=== PATIENT | male | born 1950 | race African-American/Black ===

== ENCOUNTER 2016-08-23 00:11 | Emergency (ER) | payer OTHER ==
[2016-08-23 00:36] VITALS: BP 156/88; PULSE 103; TEMP 98.2; BMI 31.1
--- NOTE | 2016-08-23 00:52 | PDOC ---
History of Present Illness - History of Present Illness Initial Comments: 08/23/16 01:44 Patient is a 65 year old male with significant medical hx of HTN who is presenting to the ED with blood in his stool from this evening. The patient is accompanied by family member. The patient also endorses some diffuse abdominal pain but denies any nausea, vomiting, or diarrhea. Patient is a poor historian and doesn't offer any other complaints. Patient had a colonoscopy five years ago, which he was due for his age, and reports it was WNL. The patient was admitted to [facility] one year ago for syncope. He is unsure of the results from his admission. Surgical Hx: tonsillectomy, two hernia repairs <Radha Mcconnell - Last Filed: 08/23/16 02:09> <Shivani Leggett - Last Filed: 08/24/16 02:28> - General Chief Complaint: Pain, Acute Stated Complaint: STOMACH PAIN/POSSIBLE BLOOD IN STOOL Time Seen by Provider: 08/23/16 00:32 Past History - Psycho/Social/Smoking Cessation Hx Suicidal Ideation: No Smoking History: Never smoked Have you smoked in the past 12 months: No Information on smoking cessation initiated: No Hx Alcohol Use: No Drug/Substance Use Hx: No <Shivani Leggett - Last Filed: 08/24/16 02:28> Review of Systems - Review of Systems Comments:: 08/23/16 01:49 CONSTITUTIONAL: Absent: fever, chills, diaphoresis, generalized weakness, malaise, loss of appetite HEENT: Absent: rhinorrhea, nasal congestion, throat pain, throat swelling, difficulty swallowing, mouth swelling, ear pain, eye pain, visual changes CARDIOVASCULAR: Absent: chest pain, syncope, palpitations, irregular heart rate, lightheadedness , peripheral edema RESPIRATORY: Absent: cough, shortness of breath, dyspnea with exertion, orthopnea, wheezing, stridor, hemoptysis GASTROINTESTINAL: Present: abdominal pain, blood in stool Absent: abdominal distension, nausea, vomiting, diarrhea, constipation, melena, hematochezia GENITOURINARY: Absent: dysuria, frequency, urgency, hesitancy, hematuria, flank pain, genital pain MUSCULOSKELETAL: Absent: myalgia, arthralgia, joint swelling SKIN: Absent: rash, itching, pallor HEMATOLOGIC/IMMUNOLOGIC: Absent: easy bleeding, easy bruising, lymphadenopathy, frequent infections ENDOCRINE: Absent: unexplained weight gain, unexplained weight loss, heat intolerance, cold intolerance NEUROLOGIC: Absent: headache, focal weakness or paresthesia, dizziness, unsteady gait, seizure, mental status changes, bladder or bowel incontinence. PSYCHIATRIC: Absent: anxiety, depression, suicidal or homicidal ideation, hallucinations <JayeshRadha - Last Filed: 08/23/16 02:09> *Physical Exam - Vital Signs Last Vital Signs Temp Pulse Resp BP Pulse Ox 98.2 F 103 H 20 156/88 98 08/23/16 00:35 08/23/16 00:35 08/23/16 00:35 08/23/16 00:35 08/23/16 00:35 - Physical Exam Comments: 08/23/16 01:50 GENERAL: Obese. Awake and alert. No acute distress. HEENT: Normocephalic, atraumatic. PERRLA, EOMI. No conjunctival pallor. Sclera are non- icteric. Moist mucous membranes. Oropharynx is clear. NECK: Supple. Full ROM. No JVD. Carotid pulses 2+ and symmetric, without bruits. No thyromegaly. No lymphadenopathy. CARDIOVASCULAR: Regular rate and rhythm. No murmurs, rubs, or gallops. Distal pulses are 2+ and symmetric. PULMONARY: No evidence of respiratory distress. Lungs clear to auscultation bilaterally. No wheezing, rales or rhonchi. ABDOMINAL: Protuberant. Soft. Non-tender. Enlarged umbilicus. No rebound or guarding. Normoactive bowel sounds. MUSCULOSKELETAL: Normal range of motion at all joints. No bony deformities or tenderness. No CVA tenderness. EXTREMITIES: No cyanosis. No clubbing. No edema. No calf tenderness. SKIN: Warm and dry. Normal capillary refill. No rashes. No jaundice. NEUROLOGICAL: Alert, awake, appropriate. AAOx3. Chronic facial droop. No gross neurological deficits. Cranial nerves 2-12 intact. Normal speech. Gait is normal without ataxia. PSYCHIATRIC: Cooperative. Good eye contact. Appropriate mood and affect. RECTAL: No external hemorrhoids. Scant red blood on anal verge. <JayeshRadha ventura - Last Filed: 08/23/16 02:09> - Vital Signs Last Vital Signs Temp Pulse Resp BP Pulse Ox 98.2 F 103 H 20 156/88 98 08/23/16 00:35 08/23/16 00:35 08/23/16 00:35 08/23/16 00:35 08/23/16 00:35 <Shivani Leggett - Last Filed: 08/24/16 02:28> Heart Score/ECG Review #1 08/23/16 02:09 Normal sinus rhythm at 91 bpm Right bundle branch block Left anterior fascicular block Bifascicular block Abnormal ECG <Radha Mcconnell - Last Filed: 08/23/16 02:09> ED Treatment Course - LABORATORY CBC & Chemistry Diagram: 08/23/16 01:15 08/23/16 01:15 - ADDITIONAL ORDERS Additional order review: 08/23/16 01:15 RBC 4.56 MCV 80.6 MCHC 31.6 L RDW 16.6 H MPV 10.5 Neutrophils % 78.4 Lymphocytes % 12.1 Monocytes % 8.6 Eosinophils % 0.3 Basophils % 0.6 <Radha Mcconnell - Last Filed: 08/23/16 02:09> - LABORATORY CBC & Chemistry Diagram: 08/23/16 01:15 08/23/16 01:15 <Shivani Leggett - Last Filed: 08/24/16 02:28> Medical Decision Making - Medical Decision Making 08/23/16 02:13 This 65-year-old male presents with a complaint of seeing blood during a bowel movement. He said he had brown stool that had primary blood on it. On exam, he had had no abdominal tenderness, no rebound and no guarding Rectal exam did not show any external hemorrhoids. There was scant red blood on the anal verge HEENT head- normocephalic/atraumatic, eyes, equal, reactive to light and accommodation, neck is supple, throat no erythema Abdomen protuberant Lungs clear to auscultation bilaterally CVS regular rate and rhythm S1, S2 Neurologically patient is alert and conversant, moving all extremities, ambulatory Skin no rash, no cellulitis Patient is a very poor historian. He is very compliant, but appears to have some chronic cognitive deficits. He states that he did have one hospitalization a year ago after having a syncopal episode. He denies taking any chronic prescription medications. He stated he has a hernia operations in the remote past. 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 <Rdaha Mcconnell - Last Filed: 08/23/16 02:09> <Shivani Leggett - Last Filed: 08/24/16 02:28> Diagnosis at time of Disposition: Blood on rectal exam - Discharge Dispostion Disposition: HOME Condition at time of disposition: Stable - Patient Instructions Printed Discharge Instructions: DI for Rectal Bleeding Additional Instructions: please follow up with your doctor this week Return if your symptoms worsen
[2016-08-23 01:32] LABS: BASOPHIL 0.6 % (0-2.0); EOSINOPHIL 0.3 % (0-4.5); MCH 25.4 pg (25.7-33.7); MCHC 31.6 g/dl (32.0-35.9); MEAN CELL VOLUME 80.6 fl (80-96); MEAN PLT VOLUME 10.5 fl (7.5-11.1); NEUTROPHILS 78.4 % (42.8-82.8); PLATELET COUNT 167 K/MM3 (134-434); RDW 16.6 % (11.9-15.9); WHITE BLOOD COUNT 9.6 K/mm3 (4.0-10.0)
[2016-08-23 01:54] LABS: ALBUMIN 3.2 g/dl (3.4-5.0); ANION GAP 14 (8-16); CALCIUM 8.9 mg/dL (8.5-10.1); CO2 23 mmol/L (21-32); COCKROFT - GAULT 159.38; CREATININE 0.7 mg/dL (0.7-1.3); GLUCOSE,RANDOM 110 mg/dL (74-106); INR 1.08 (0.82-1.09); PROTHROMBIN TIME (PATIENT) 11.9 SEC (9.98-11.88); SGOT/AST 12 U/L (15-37); SGPT/ALT 19 U/L (12-78)
[2016-08-23 01:57] LABS: ALK PHOS 87 U/L (45-117); BILIRUBIN,TOTAL 0.2 mg/dL (0.2-1.0); TOT PROT 6.5 g/dl (6.4-8.2); TROPONIN I < 0.02 ng/ml (0.00-0.05)
--- NOTE | 2016-08-23 10:42 | EKG ---
Test Reason : Blood Pressure : / mmHG Vent. Rate : 091 BPM Atrial Rate : 091 BPM P-R Int : 156 ms QRS Dur : 132 ms QT Int : 376 ms P-R-T Axes : 051 -53 029 degrees QTc Int : 462 ms NORMAL SINUS RHYTHM RIGHT BUNDLE BRANCH BLOCK LEFT ANTERIOR FASCICULAR BLOCK BIFASCICULAR BLOCK ABNORMAL ECG NO PREVIOUS ECGS AVAILABLE CLINICAL CORRELATION IS RECOMMENDED Confirmed by TRISTIN KURTZ, MARIANA ([id number]) on 08/23/2016 10:42:23 AM Referred By: Confirmed By:MARIANA CROW MD
== END 2016-08-23 04:05 | disposition home or self-care (01) ==
LOC: JER 00:11
DX: K62.5 Hemorrhage of anus and rectum (principal); I10 Essential (primary) hypertension
CPT/HCPCS: 36415; 80053; 82272; 82550; 84484; 85025; 85610; 86850; 86900; 86901; 93005; 93010; 99282-25

== ENCOUNTER 2018-10-30 13:30 | Inpatient (IN) | payer OTHER ==
--- NOTE | 2018-10-30 13:48 | PDOC ---
Rapid Medical Evaluation Chief Complaint: Urinary Problem Time Seen by Provider: 10/30/18 13:47 Medical Evaluation: Allergies Allergy/AdvReac Type Severity Reaction Status Date / Time No Known Allergies Allergy Verified 10/30/18 13:46 10/30/18 13:47 I have performed a brief in-person evaluation of this patient. The patient presents with a chief complaint of: frequent urination x months, now ? foul odor. Also has worsening umbilical hernia. Was seen in another ED months ago for issues and told he needed to see a specialist but pt never did for unclear reasons. No change in baseline sxs per pt. Denies constipation, n/v/f/c or unexplained weight loss. No known h/o BPH or DM. H/o HTN, possible chronic cognitive deficit per records Pertinent physical exam findings:Stable, defer to ED provider I have ordered the following:labs The patient will proceed to the ED for further evaluation. Discharge Disposition - Diagnosis Urinary frequency - Referrals - Patient Instructions - Post Discharge Activity
[2018-10-30 13:52] VITALS: BMI 29.8
[2018-10-30] MEDS ORDERED: SODIUM CHLORIDE 0.9% 500 ML INFUS.BAG IV ONE (14:32)
[2018-10-30 15:35] LABS: BASO % 0.9 % (0-2.0); EOS % 0.9 % (0-4.5); HEMATOCRIT 41.2 % (35.4-49); HEMOGLOBIN 13.4 GM/dL (11.7-16.9); LYMPH % 25.6 % (8-40); MCH 25.9 pg (25.7-33.7); MCHC 32.5 g/dl (32.0-35.9); MEAN CELL VOLUME 79.7 fl (80-96); MEAN PLT VOLUME 10.5 fl (7.5-11.1); MONO % 12.7 % (3.8-10.2); NEUT % 59.9 % (42.8-82.8); PLATELET COUNT 190 K/MM3 (134-434); RBC 5.16 M/mm3 (4.00-5.60); RDW 17.7 % (11.9-15.9); WHITE BLOOD COUNT 6.9 K/mm3 (4.0-10.0)
--- NOTE | 2018-10-30 15:35 | PDOC ---
History of Present Illness - History of Present Illness Initial Comments: 10/30/18 14:29 68yo M hx HTN, cognitive deficits, and possible hernia repair surgeries presenting from home c/o frequent urination, foul odor from urine?, and umbilical hernia. Pt is a poor historian and has a friend with him. Pt came in to have prostate and hernia checked out. Pt states he is fine and has no complaints. Endorses chills. Denies any pain, CP, SOB, ABREU, numbness/tingling, weakness, fever, abdominal pain, dysuria, hematuria, blood in stool, D/C, back pain, recent illness, travel, hx of BPH or DM. Pt's friend drops in to clean and help out because pt lives alone at home. Pt's friend states that hernia is getting worse and she has noticed urine stains and white pus on his pants. Pt's friend also states that darkening of hernia is new. Pt's friend states that pt will always denie pain everywhere even when she knows he is in pain. <Azra Cannon - Last Filed: 10/30/18 21:15> <Shivani Leggett - Last Filed: 10/31/18 00:11> - General Chief Complaint: Urinary Problem Stated Complaint: URINARY PROBLEM Time Seen by Provider: 10/30/18 13:47 Past History - Past Medical History CVA: No COPD: No CHF: No HTN: Yes - Immunization History Immunization Up to Date: Yes - Suicide/Smoking/Psychosocial Hx Smoking History: Never smoked Have you smoked in the past 12 months: No Information on smoking cessation initiated: No Hx Alcohol Use: No Drug/Substance Use Hx: No <Azra Cannon - Last Filed: 10/30/18 21:15> <Shivani Leggett - Last Filed: 10/31/18 00:11> - Past Medical History Allergies/Adverse Reactions: Allergies Allergy/AdvReac Type Severity Reaction Status Date / Time No Known Allergies Allergy Verified 10/30/18 13:48 Home Medications: Ambulatory Orders NK [No Known Home Medication] 10/30/18 Review of Systems - Review of Systems Comments:: 10/30/18 19:17 Constitutional: Positive for chills. Negative for fever, fatigue. HENT: Negative for sore throat, rhinorrhea, congestion. Eyes: Negative for visual disturbance. Respiratory: Negative for shortness of breath, cough, and wheezing. Cardiovascular: Negative for chest pain, palpitations, and leg swelling. Gastrointestinal: Positive for umbilical hernia with new dark discoloration and white pus foul-smelling drainage. Negative for abdominal pain, blood in stool, constipation, diarrhea, nausea, and vomiting. Genitourinary: Positive for increased frequency. Negative for dysuria, flank pain, and hematuria. Musculoskeletal: Negative for myalgias, back pain, and neck pain. Skin: Negative for rash. Neurological: Negative for light-headedness, dizziness, syncope, weakness, numbness and headaches. Psychiatric/Behavioral: Positive for cognitive deficit (baseline). Negative for behavioral problems and confusion. <Azra Cannon - Last Filed: 10/30/18 21:15> *Physical Exam - Vital Signs Last Vital Signs Temp Pulse Resp BP Pulse Ox 98.5 F 84 16 168/91 97 10/30/18 13:49 10/30/18 13:49 10/30/18 13:49 10/30/18 13:49 10/30/18 13:49 - Physical Exam Comments: 10/30/18 19:15 Gen: Alert, NAD, comfortable-appearing. HEENT: PERRL, EOMI, MMM, NCAT. No conjunctival pallor. Sclera are non-icteric. Oropharynx is clear. CV: Regular rate and rhythm. No murmurs, rubs, or gallops. PULM: No resp distress. CTAB, no wheezes, rales, or rhonchi. ABD: +umbilical hernia, dark discoloration, non-reducible, no erythema or warmth , lateral hernia skin ulceration with white purulent drainage; soft, NT/ND, no rebound tenderness or guarding, no CVA tenderness. BACK: No TTP of c/t/l-spine. No step-offs or deformities. MSK: No bony deformities. 2+ pulses in all extremities. NEURO: AAOx3. PERRL. No gross CN deficits. Strength and sensation grossly intact throughout. EXTREMITIES: No cyanosis. No clubbing. No edema. No calf tenderness. PSYCH: Normal mood and thought pattern. SKIN: Warm and dry. Normal capillary refill. No rashes. No jaundice. <Azra Cannon - Last Filed: 10/30/18 21:15> - Vital Signs Last Vital Signs Temp Pulse Resp BP Pulse Ox 97.3 F L 80 16 128/81 98 10/30/18 17:48 10/30/18 17:48 10/30/18 13:49 10/30/18 17:48 10/30/18 17:48 <OleksandrShivani - Last Filed: 10/31/18 00:11> ED Treatment Course - LABORATORY CBC & Chemistry Diagram: 10/30/18 15:15 10/30/18 16:15 - RADIOLOGY Radiology Studies Ordered: Category Date Time Status ABDOMEN & PELVIS CT WITH CONTR [CT] Stat CT Scan 10/30/18 14:32 Ordered - Medications Given in the ED: ED Medications Discontinued Medications Generic Name Dose Route Start Last Admin Trade Name Freq PRN Reason Stop Dose Admin Sodium Chloride 1,000 ml 10/30/18 14:32 10/30/18 15:30 Normal Saline - IV 10/30/18 14:33 1,000 ml ONCE ONE Administration <Azra Cannon - Last Filed: 10/30/18 21:15> - LABORATORY CBC & Chemistry Diagram: 10/30/18 15:15 10/30/18 16:15 - ADDITIONAL ORDERS Additional order review: Laboratory Results 10/30/18 10/30/18 10/30/18 16:15 16:15 15:15 PT with INR INR PTT (Actin FS) Sodium 145 Potassium 4.1 Chloride 112 H Carbon Dioxide 27 Anion Gap 6 L BUN 9.7 Creatinine 0.7 Est GFR (CKD-EPI)AfAm 113.98 Est GFR (CKD-EPI)NonAf 98.34 Random Glucose 76 Lactic Acid Calcium 9.2 Total Bilirubin 0.2 AST 12 L ALT 18 Alkaline Phosphatase 97 Total Protein 7.0 Albumin 3.2 L Urine Color Urine Appearance Urine pH Ur Specific [place] Urine Protein Urine Glucose (UA) Urine Ketones Urine Blood Urine Nitrite Urine Bilirubin Urine Urobilinogen Ur Leukocyte Esterase Blood Type B POSITIVE Cancelled Antibody Screen Negative Cancelled 10/30/18 10/30/18 10/30/18 15:15 15:15 15:15 PT with INR 12.00 INR 1.02 PTT (Actin FS) 34.2 Sodium Potassium Chloride Carbon Dioxide Anion Gap BUN Creatinine Est GFR (CKD-EPI)AfAm Est GFR (CKD-EPI)NonAf Random Glucose Lactic Acid 1.5 Calcium Total Bilirubin AST ALT Alkaline Phosphatase Total Protein Albumin Urine Color Urine Appearance Urine pH Ur Specific [place] Urine Protein Urine Glucose (UA) Urine Ketones Urine Blood Urine Nitrite Urine Bilirubin Urine Urobilinogen Ur Leukocyte Esterase Blood Type Antibody Screen 10/30/18 10/30/18 15:15 15:00 PT with INR INR PTT (Actin FS) Sodium Cancelled Potassium Cancelled Chloride Cancelled Carbon Dioxide Cancelled Anion Gap Cancelled BUN Cancelled Creatinine Cancelled Est GFR (CKD-EPI)AfAm Cancelled Est GFR (CKD-EPI)NonAf Cancelled Random Glucose Cancelled Lactic Acid Calcium Cancelled Total Bilirubin Cancelled AST Cancelled ALT Cancelled Alkaline Phosphatase Cancelled Total Protein Cancelled Albumin Cancelled Urine Color Yellow Urine Appearance Clear Urine pH 5.5 Ur Specific [place] 1.017 Urine Protein Negative Urine Glucose (UA) Negative Urine Ketones Negative Urine Blood Negative Urine Nitrite Negative Urine Bilirubin Negative Urine Urobilinogen 0.2 Ur Leukocyte Esterase Negative Blood Type Antibody Screen 10/30/18 15:15 RBC 5.16 MCV 79.7 L MCHC 32.5 RDW 17.7 H MPV 10.5 Neutrophils % 59.9 D Lymphocytes % 25.6 D Monocytes % 12.7 H Eosinophils % 0.9 D Basophils % 0.9 - Medications Given in the ED: ED Medications Discontinued Medications Generic Name Dose Route Start Last Admin Trade Name Freq PRN Reason Stop Dose Admin Piperacillin Sod/Tazobactam 50 mls @ 100 mls/hr 10/30/18 18:21 10/30/18 19:24 Sod 3.375 gm/ Dextrose IVPB 10/30/18 18:50 100 mls/hr ONCE ONE Administration Protocol Sodium Chloride 1,000 ml 10/30/18 14:32 10/30/18 15:30 Normal Saline - IV 10/30/18 14:33 1,000 ml ONCE ONE Administration Vancomycin HCl 1,000 mg 10/30/18 18:21 10/30/18 21:10 Vancomycin (Pre-Docked) IVPB 10/30/18 18:22 1,000 mg ONCE ONE Administration Protocol <Shivani Leggett - Last Filed: 10/31/18 00:11> Medical Decision Making - Medical Decision Making 10/30/18 14:30 68yo M hx HTN, cognitive deficits, and possible hernia repair surgeries presenting from home with worsening umbilical hernia, nonreducible with new darkening/discoloration and skin ulcer with white pus draining. Hemodynamically stable, afebrile, non-acute abdomen. Abdomen and hernia non-TTP but pt's friend states that he will always deny pain. Concern for strangulated vs incarcerated hernia and skin ulcer/cellulitis vs infected hernia - obtain labs including lact and CTAP to assess. Frequent urination raises concern for DM vs UTI vs BPH - assess with UA/UC and labs (if negative, f/u with PCP/urologist). -CBC, CMP, coags, T&S, Lact, UA/UC -1L IVF -CTAP -Dispo: likely admit pending w/u 10/30/18 15:34 Spoke with sister Wanda Mena [phone]. She does not know if he's ever had surgeries but states she's tried to get him to the hospital to be checked out for a long time now. 10/30/18 17:15 Labs reviewed. No concerning findings. WBC 6.9. UA negative for UTI. Lact 1.5. 10/30/18 18:10 CTAP: A moderate-sized umbilical hernia is noted containing fat only. Minimal to mild linear soft tissue stranding is seen within the herniated fat. There is mild nonspecific curvilinear wall thickening along the left lateral border of the subcutaneous hernia sac. R inguinal hernia containing fat only. Small b/l nonobstructing renal calculi. B/l adrenal nodules very likely representing adenomas on a statistical basis. Biochemical eval is suggested as well as 3mo f/u noncontrast MRI or CT to document stability. 10/30/18 18:24 Wound culture added. Surgery paged for consult. Foul-smelling, localized infection of nonreducible umbilical hernia. Start IV abx - Zosyn and Vanc. Pending surgery, admit. Pt doing well, no complaints. 10/30/18 18:[address] Smith. Agreed with current plan and coming down to see him. 10/30/18 21:15 Signed out to admitting team, attending Dr. Whatley. <Azra Cannon - Last Filed: 10/30/18 21:15> *DC/Admit/Observation/Transfer - Discharge Dispostion Decision to Admit order: Yes <Azra Cannon - Last Filed: 10/30/18 21:15> <Shivani Leggett - Last Filed: 10/31/18 00:11> Diagnosis at time of Disposition: Urinary frequency, Ulcer Umbilical hernia Qualifiers: Obstruction and gangrene presence: without obstruction or gangrene Qualified Code(s): K42.9 - Umbilical hernia without obstruction or gangrene - Discharge Dispostion Condition at time of disposition: Stable
--- NOTE | 2018-10-30 15:36 | PDOC ---
Attending Attestation - Resident Resident Name: Azra Cannon - ED Attending Attestation I have performed the following: I have examined & evaluated the patient, The case was reviewed & discussed with the resident, I agree w/resident's findings & plan - HPI HPI: 10/30/18 15:30 68y/o M h/o developmental delay from living facility, h/o HTN, umbilical hernia s/p repair x2 presents now with two complaints by facility staff: redness/ discoloration of umbilical hernia with purulence, and foul-smelling urine. no f/ c, no vomiting/diarrhea/bloody stool. pt himself has no complaints, but that is his baseline cognitive function. - Physicial Exam PE: 10/30/18 15:32 afebrile, vss well appearing seated in stretcher in nad, conversant and pleasant no jaundice/pallor, neck supple s1s2 rrr, ctab abd distended but soft, nontender. large umbilical hernia with some discoloration, not tender to palpation, not reducible. there is a small 1cm ulceration at 3 o/clock with some purulence. no inguinal hernia/mass, normal circumsized penis without scrotal edema/erythema or testicular ttp. - Medical Decision Making 10/30/18 15:36 68-year-old male with history of cognitive delay presents with incarcerated umbilical hernia with skin ulceration/infection, and foul-smelling urine with an otherwise normal exam. Abdominal exam not consistent with obstruction, hemodynamically stable, rule out UTI. Labs, urinalysis/urine culture IV fluids CT of the abdomen and pelvis Reassess
[2018-10-30 16:04] LABS: INR 1.02 (0.83-1.09)
[2018-10-30 16:46] LABS: PH,URINE 5.5 (5.0-8.0); URINE APPEARANCE CLEAR; URINE BILIRUBIN NEGATIVE (NEGATIVE); URINE COLOR YELLOW; URINE GLUCOSE (UA) NEGATIVE (NEGATIVE); URINE KETONE NEGATIVE (NEGATIVE); URINE LEUK ESTERASE NEGATIVE (NEGATIVE); URINE NITRITE NEGATIVE (NEGATIVE); URINE PROTEIN NEGATIVE (NEGATIVE); URINE UROBILINOGEN 0.2 mg/dL (0.2-1.0)
[2018-10-30 16:52] LABS: ALBUMIN 3.2 g/dl (3.4-5.0); BILIRUBIN,TOTAL 0.2 mg/dL (0.2-1); BLOOD UREA NITROGEN 9.7 mg/dL (7-18); CALCIUM 9.2 mg/dL (8.5-10.1); CREATININE 0.7 mg/dL (0.55-1.3); POTASSIUM 4.1 mmol/L (3.5-5.1)
[2018-10-30] MEDS ORDERED: VANCOMYCIN 1 GM in D5W (PRE-DOCKED) 1,000 MG/250 ML IVPB ONE (18:21)
[2018-10-30] MEDS ORDERED: PIPERACILLIN/TAZOB 3.375 GM 3.375 GM in DEXTROSE 5%-WATER - 50 ML IVPB ONE (18:21)
[2018-10-30] MEDS ORDERED: PIPERACILLIN/TAZOB 3.375 GM 3.375 GM/50 ML BAG IVPB ONE (19:13)
--- NOTE | 2018-10-30 21:02 | CONSULT ---
Consult Consult Specialty:: General Surgery Reason for Consultation:: strangulated umbilcal hernia - History of Present Illness Chief Complaint: umbilical hernia History of Present Illness: 68yo male PMH HTN, cognitive deficits, and possible hernia repair surgeries presenting from home complained of frequent urination, foul odor from urine, and umbilical hernia. Pt is a poor historian and has a friend with him. Pt came in to have prostate and hernia checked out. Pt states he is fine and has no complaints. Endorses chills. Denies any pain, CP, SOB, ABREU, numbness/tingling, weakness, fever, abdominal pain, dysuria, hematuria, blood in stool, D/C, back pain, recent illness, travel, hx of BPH or DM. Pt's friend drops in to clean and help out because pt lives alone at home. Pt's friend states that hernia is getting worse and she has noticed urine stains and white pus on his pants. Pt's friend also states that darkening of hernia is new. Pt's friend states that pt will always denie pain everywhere even when she knows he is in pain. we were called to assess. 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 ) Cardio/Vascular: Yes: HTN - Alcohol/Substance Use Hx Alcohol Use: No - Smoking History Smoking history: Never smoked Have you smoked in the past 12 months: No Home Medications - Allergies Allergies/Adverse Reactions: Allergies Allergy/AdvReac Type Severity Reaction Status Date / Time No Known Allergies Allergy Verified 10/30/18 13:48 - Home Medications Home Medications: Ambulatory Orders NK [No Known Home Medication] 10/30/18 Review of Systems - Review of Systems Constitutional: denies: Chills, Fever Eyes: denies: Blind Spots, Recent Change in Vision HENT: denies: Difficult Swallowing, Throat Pain Neck: denies: Decreased ROM, Tenderness, Other Cardiovascular: denies: Chest Pain, Palpitations Respiratory: denies: Cough, SOB Gastrointestinal: reports: Abdominal Pain, Bloating. denies: Melena, Nausea Genitourinary: denies: Burning, Discharge, Dysuria Breasts: reports: No Symptoms Reported. denies: Pain Musculoskeletal: denies: Back Pain, Muscle Pain, Muscle Cramps Integumentary: denies: Bruising, Lesions Neurological: denies: Seizure, Syncope, Weakness Endocrine: denies: Unexplained Weight Gain, Unexplained Weight Loss Hematology/Lymphatic: denies: Easily Bruised, Excessive Bleeding Psychiatric: denies: Anxiety, Depression Physical Exam Vital Signs: Vital Signs Temperature 97.3 F L 10/30/18 17:48 Pulse Rate 80 10/30/18 17:48 Respiratory Rate 16 10/30/18 13:49 Blood Pressure 128/81 10/30/18 17:48 O2 Sat by Pulse Oximetry (%) 98 10/30/18 17:48 Constitutional: Yes: Well Nourished, No Distress, Calm Eyes: Yes: Conjunctiva Clear, EOM Intact HENT: Yes: Atraumatic, Normocephalic Neck: Yes: Supple, Trachea Midline Cardiovascular: Yes: Regular Rate and Rhythm, S1, S2 Respiratory: Yes: Regular, CTA Bilaterally Gastrointestinal: Yes: Normal Bowel Sounds, Soft, Hernia (reducible, non tenderm chronically incarcerted, with chronic skin chnages). No: Tenderness ...Rectal Exam: Yes: Deferred Renal/: No: CVA Tenderness - Left, CVA Tenderness - Right Breast(s): No: Mass, Skin Changes Musculoskeletal: No: Muscle Pain, Muscle Weakness Extremities: No: Cool, Cyanosis Edema: No Peripheral Pulses WNL: Yes Neurological: Yes: Alert, Oriented Psychiatric: Yes: Alert, Oriented Labs: CBC, BMP 10/30/18 15:15 10/30/18 16:15 Imaging - Results Cat Scan: Report Reviewed, Image Reviewed (fat containing umbilical hernia) Problem List - Problems (1) Incarcerated umbilical hernia Assessment/Plan: 68 yo male with MMP including cognitive delay with a chronically incarcerated umbilcal hernia with chronic skin changes. andi evidence of bowel involvement obstruction or strangulation. Management per medicine weight loss program avoid heavy lifting No acute surgical intervention Thank you for the opportunity to participate in the care of this patient. Code(s): K42.0 - UMBILICAL HERNIA WITH OBSTRUCTION, WITHOUT GANGRENE (2) Ulcer Code(s): [id number] - (3) Urinary frequency Code(s): R35.0 - FREQUENCY OF MICTURITION (4) Cognitive decline Code(s): R41.89 - OTH SYMPTOMS AND SIGNS W COGNITIVE FUNCTIONS AND AWARENESS (5) HTN (hypertension) Code(s): I10 - ESSENTIAL (PRIMARY) HYPERTENSION
[2018-10-30] MEDS ORDERED: VANCOMYCIN 1 GRAM (PRE-DOCKED) 1,000 MG/250 ML BAG IVPB ONE (21:03)
--- NOTE | 2018-10-30 21:21 | HP ---
CHIEF COMPLAINT: urinary frequency PCP: none HISTORY OF PRESENT ILLNESS: Mr. Mena is a 68yo male with no reported medical history who presents with urinary frequency that has been worsening over the last year. He reports he wakes up a couple times a night to urinate, and he also has the sensation of incomplete bladder emptying. He denies hematuria, fever, chills, abdominal pain , nausea, vomiting, dizziness, headache, or chest pain. His friend brought him in today out of concern for discoloration of umbilical hernia. There was also reported pus which was found to be non-infectious accumulation from poor hygiene. The patient denies umbilical pain currently. Pt history is limited due to cognitive deficits. History also obtained via ED note which has information from his friend. ER course was notable for: (1) piperacillin (2) vancomycin (3) CT (4) surgical consult Recent Travel: unknown PAST MEDICAL HISTORY: denies PAST SURGICAL HISTORY: umbilical hernia repair over 10 years ago L inguinal hernia repair over 10 years ago Social History: Smoking: denies Alcohol: denies Drugs: denies Family History: extended family DM Allergies No Known Allergies Allergy (Verified 10/30/18 13:48) HOME MEDICATIONS: Home Medications Medication Instructions Recorded NK [No Known Home Medication] 10/30/18 REVIEW OF SYSTEMS CONSTITUTIONAL: Absent: fever, chills, diaphoresis, generalized weakness HEENT: Absent: rhinorrhea, nasal congestion, sore throat, ear pain CARDIOVASCULAR: Absent: chest pain, syncope, palpitations, irregular heart rate, lightheadedness , peripheral edema RESPIRATORY: Absent: cough, shortness of breath GASTROINTESTINAL: Absent: abdominal pain, abdominal distension, nausea, vomiting, diarrhea, constipation GENITOURINARY: Present: frequency Absent: dysuria, urgency, hesitancy, hematuria, flank pain, genital pain MUSCULOSKELETAL: Absent: myalgia, arthralgia, joint swelling, back pain, neck pain SKIN: Absent: rash, itching, pallor HEMATOLOGIC/IMMUNOLOGIC: Absent: easy bleeding, easy bruising, lymphadenopathy, frequent infections ENDOCRINE: Absent: unexplained weight gain, unexplained weight loss, heat intolerance, cold intolerance NEUROLOGIC: Absent: headache, focal weakness or paresthesias, dizziness, unsteady gait, seizure, mental status changes, bladder or bowel incontinence PSYCHIATRIC: Absent: anxiety, depression, suicidal or homicidal ideation, hallucinations. PHYSICAL EXAMINATION Vital Signs - 24 hr 10/30/18 10/30/18 13:49 17:48 Temperature 98.5 F 97.3 F L Pulse Rate 84 Pulse Rate [ 80 Right Radial] Respiratory 16 Rate Blood Pressure 168/91 Blood Pressure 128/81 [Right Arm] O2 Sat by Pulse 97 98 Oximetry (%) GENERAL: Awake, alert, and fully oriented, in no acute distress. Obese body habitus. HEAD: Normal with no signs of trauma. EYES: Pupils equal, round and reactive to light, extraocular movements intact, sclera anicteric, conjunctiva clear. No lid lag. EARS, NOSE, THROAT: Ears normal, nares patent. Moist mucous membranes. NECK: Normal range of motion, supple without lymphadenopathy, JVD, or masses. LUNGS: Breath sounds equal, clear to auscultation bilaterally. No wheezes, and no crackles. No accessory muscle use. HEART: Regular rate and rhythm, normal S1 and S2 without murmur, rub or gallop. ABDOMEN: Soft, nontender, non-distended, normoactive bowel sounds, no guarding, no rebound, no masses. Moderate sized umbilical hernia noted which is darker than surrounding skin. Not hot to touch. No hepatomegaly or splenomegaly. MUSCULOSKELETAL: Normal range of motion at all joints. No bony deformities or tenderness. UPPER EXTREMITIES: warm, well-perfused. No cyanosis. No clubbing. No peripheral edema. LOWER EXTREMITIES: warm, well-perfused. No calf tenderness. No peripheral edema. NEUROLOGICAL: Cranial nerves II-XII intact. Normal speech. PSYCHIATRIC: Cooperative. Good eye contact. Appropriate mood and affect. SKIN: Warm, dry, normal turgor, no rashes or lesions noted, normal capillary refill. Laboratory Results - last 24 hr 10/30/18 10/30/18 10/30/18 15:00 15:15 15:15 WBC 6.9 RBC 5.16 Hgb 13.4 Hct 41.2 MCV 79.7 L MCH 25.9 MCHC 32.5 RDW 17.7 H Plt Count 190 MPV 10.5 Absolute Neuts (auto) 4.1 Neutrophils % 59.9 D Lymphocytes % 25.6 D Monocytes % 12.7 H Eosinophils % 0.9 D Basophils % 0.9 Nucleated RBC % 0 PT with INR INR PTT (Actin FS) Sodium Cancelled Potassium Cancelled Chloride Cancelled Carbon Dioxide Cancelled Anion Gap Cancelled BUN Cancelled Creatinine Cancelled Est GFR (CKD-EPI)AfAm Cancelled Est GFR (CKD-EPI)NonAf Cancelled Random Glucose Cancelled Lactic Acid Calcium Cancelled Total Bilirubin Cancelled AST Cancelled ALT Cancelled Alkaline Phosphatase Cancelled Total Protein Cancelled Albumin Cancelled Urine Color Yellow Urine Appearance Clear Urine pH 5.5 Ur Specific [place] 1.017 Urine Protein Negative Urine Glucose (UA) Negative Urine Ketones Negative Urine Blood Negative Urine Nitrite Negative Urine Bilirubin Negative Urine Urobilinogen 0.2 Ur Leukocyte Esterase Negative Blood Type Antibody Screen 10/30/18 10/30/18 10/30/18 15:15 15:15 15:15 WBC RBC Hgb Hct MCV MCH MCHC RDW Plt Count MPV Absolute Neuts (auto) Neutrophils % Lymphocytes % Monocytes % Eosinophils % Basophils % Nucleated RBC % PT with INR 12.00 INR 1.02 PTT (Actin FS) 34.2 Sodium Potassium Chloride Carbon Dioxide Anion Gap BUN Creatinine Est GFR (CKD-EPI)AfAm Est GFR (CKD-EPI)NonAf Random Glucose Lactic Acid 1.5 Calcium Total Bilirubin AST ALT Alkaline Phosphatase Total Protein Albumin Urine Color Urine Appearance Urine pH Ur Specific [place] Urine Protein Urine Glucose (UA) Urine Ketones Urine Blood Urine Nitrite Urine Bilirubin Urine Urobilinogen Ur Leukocyte Esterase Blood Type Antibody Screen 10/30/18 10/30/18 10/30/18 15:15 16:15 16:15 WBC RBC Hgb Hct MCV MCH MCHC RDW Plt Count MPV Absolute Neuts (auto) Neutrophils % Lymphocytes % Monocytes % Eosinophils % Basophils % Nucleated RBC % PT with INR INR PTT (Actin FS) Sodium 145 Potassium 4.1 Chloride 112 H Carbon Dioxide 27 Anion Gap 6 L BUN 9.7 Creatinine 0.7 Est GFR (CKD-EPI)AfAm 113.98 Est GFR (CKD-EPI)NonAf 98.34 Random Glucose 76 Lactic Acid Calcium 9.2 Total Bilirubin 0.2 AST 12 L ALT 18 Alkaline Phosphatase 97 Total Protein 7.0 Albumin 3.2 L Urine Color Urine Appearance Urine pH Ur Specific [place] Urine Protein Urine Glucose (UA) Urine Ketones Urine Blood Urine Nitrite Urine Bilirubin Urine Urobilinogen Ur Leukocyte Esterase Blood Type Cancelled B POSITIVE Antibody Screen Cancelled Negative ASSESSMENT/PLAN: The pt is a 68yo male with no known medical history who present with urinary frequency as well as worsening umbilical hernia. History is limited. Pt has limited understanding and poor communication. He lives alone, possibly with assisted living, and we are unsure of his ability to care for himself, so unsure if discharge is safe at this time. Will observe overnight. 1. urinary frequency -prophylactic abx given in ED -UA negative for infection or hematuria -urine culture pending -CT showed moderate prostate enlargement which can possibly account for urinary frequency and incomplete emptying sensation -f/u out pt 2. umbilical hernia -pt's friend reported change in color -CT showed moderate umbilical hernia containing fat, no strangulation or incarceration -pt is currently denying abdominal pain -Dr. Smith was consulted and determined surgery was not warranted 3. cognitive communication deficit -pt's friend states pt does not always report medical problems -during exam, pt's vocabulary and understanding were below adult level -will observe overnight and run labs b/c of uncertain medical history and not safe discharge -CBC -CMP -Mg -Phos -HbA1c -PT consult DVT prophylaxis SCDs FEN no fluids necessary CMP in the morning regular diet Visit type - Emergency Visit Emergency Visit: Yes ED Registration Date: 10/30/18 Care time: The patient presented to the Emergency Department on the above date and was hospitalized for further evaluation of their emergent condition. - New Patient This patient is new to me today: Yes Date on this admission: 10/31/18 - Critical Care Critical Care patient: No ATTENDING PHYSICIAN STATEMENT I saw and evaluated the patient. I reviewed the resident's note and discussed the case with the resident. I agree with the resident's findings and plan as documented. SUBJECTIVE: OBJECTIVE: ASSESSMENT AND PLAN:
--- NOTE | 2018-10-30 22:24 | PN ---
Teaching Attending Note Name of Resident: Yasmeen Baker ATTENDING PHYSICIAN STATEMENT I saw and evaluated the patient. I reviewed the resident's note and discussed the case with the resident. I agree with the resident's findings and plan as documented. Seen and examined; please refer to product development intern note for further historical information. He is a poor historian; sent in for months of foul smelling urine/ frequency and hernia. ER informs me there is suspicion of strangulated hernia but none present on CT with fat-containing umbilical only (has history of multiple repairs here, apparently, but we don't have old chart). Unclear social situation initially. White discharge from navel not pus; debris from lack of hygeine. No evidence of pus/infection on CT in this region, either. Complains of urinary frequency; no UTI on UA. Denies hx DM; can check nonurgent A1c. No white count, no fever. VS, labs, imaging reviewed NAD, AAO, resting in bed NC AT EOMI PERRLA RRR s1/2 no mgr Lungs CTAB, w/ sym exp Slightly distended which he agrees is normal, +BS. Moderate sized fat- containing hernia not painful to palpation; overlies navel which likely caused the poor hygeine. Once wiped no pus, no drainage, no outflow. CN2-12 wnl, no fnd Limited insight, question cognative impairment CT reviewed; official read states moderate fat only containing umbilical hernia with minimal to mild linear soft tissue stranding in the fat. Minimal to mild linear wall thickening along the L-lateral border of the subcutaneous hernia sac. UA negative for acute infection ASSESSMENT AND PLAN: Patient presents with fat-filled umbilical hernia as well as urinary frequency; CT results reviewed. Surgery saw in ER and states no need for surgical intervention; unclear living situation initially but ER Attending spoke with Lauryn who is his sisters friend and who helps out in his care. She will be able to pick him up in the AM. # Social Admit # Known umbilical hernia, fat containing, s/p repair # Foul smelling urine with negative UA # Naval debris No intervention needed per Dr. Smith; hemodynamics stable. Naval debris can be cleaned by patient or nursing, not pus with no outflow tract or signs of infection. Friend will bean picker machine operator in AM as he does not drive or transport himself.
[2018-10-31 00:22] VITALS: TEMP 98.4
[2018-10-31 07:25] LABS: BASO % 0.2 % (0-2.0); HEMATOCRIT 39.3 % (35.4-49); HEMOGLOBIN 12.7 GM/dL (11.7-16.9); LYMPH % 24.2 % (8-40); MCH 25.8 pg (25.7-33.7); MCHC 32.2 g/dl (32.0-35.9); MEAN CELL VOLUME 80.2 fl (80-96); MEAN PLT VOLUME 10.9 fl (7.5-11.1); MONO % 11.1 % (3.8-10.2); NEUT % 63.5 % (42.8-82.8); PLATELET COUNT 185 K/MM3 (134-434)
[2018-10-31 08:03] LABS: ALBUMIN 3.1 g/dl (3.4-5.0); BILIRUBIN,TOTAL 0.3 mg/dL (0.2-1); BLOOD UREA NITROGEN 11.2 mg/dL (7-18); CREATININE 0.7 mg/dL (0.55-1.3); POTASSIUM 4.1 mmol/L (3.5-5.1); TOT PROT 6.9 g/dl (6.4-8.2)
[2018-10-31 12:24] VITALS: BP 162/77; PULSE 58
--- NOTE | 2018-10-31 18:20 | PN ---
Teaching Attending Note Name of Resident: Soha Kumar ATTENDING PHYSICIAN STATEMENT I saw and evaluated the patient. I reviewed the resident's note and discussed the case with the resident. I agree with the resident's findings and plan as documented. SUBJECTIVE: OBJECTIVE: Last Vital Signs Temp Pulse Resp BP Pulse Ox 98.4 F 58 L 17 162/77 98 10/30/18 19:20 10/31/18 12:24 10/31/18 12:24 10/31/18 12:24 10/31/18 12:24 Laboratory Results - last 24 hr 10/31/18 10/31/18 06:00 06:00 WBC 7.0 RBC 4.90 Hgb 12.7 Hct 39.3 MCV 80.2 MCH 25.8 MCHC 32.2 RDW 17.0 H Plt Count 185 MPV 10.9 Absolute Neuts (auto) 4.4 Neutrophils % 63.5 Lymphocytes % 24.2 Monocytes % 11.1 H Eosinophils % 1.0 Basophils % 0.2 Nucleated RBC % 0 Sodium 143 Potassium 4.1 Chloride 109 H Carbon Dioxide 27 Anion Gap 7 L BUN 11.2 Creatinine 0.7 Est GFR (CKD-EPI)AfAm 113.98 Est GFR (CKD-EPI)NonAf 98.34 Random Glucose 84 Calcium 9.0 Total Bilirubin 0.3 AST 12 L ALT 16 Alkaline Phosphatase 92 Total Protein 6.9 Albumin 3.1 L Home Medications Medication Instructions Recorded NK [No Known Home Medication] 10/30/18 ASSESSMENT AND PLAN:
--- NOTE | 2018-10-31 21:04 | DS ---
Physical Exam: SUBJECTIVE: Patient seen and examined at bedside. pt states he has no acute complaints. pt stated he felt it was time to see the doctor since he was off of work and hasnt seen a doctor in a while. OBJECTIVE: Vital Signs Period Temp Pulse Resp BP Sys/Sierra Pulse Ox Last 24 Hr 58-79 17-17 138-162/77-79 96-98 PHYSICAL EXAM GENERAL: The patient is awake, alert, and fully oriented, in no acute distress. LUNGS: Breath sounds equal, clear to auscultation bilaterally, no wheezes, no crackles, no accessory muscle use. HEART: Regular rate and rhythm, S1, S2 without murmur, rub or gallop. ABDOMEN: Soft, nontender, nondistended, normoactive bowel sounds, large periumbilical hernia. EXTREMITIES:warm, well-perfused, no edema. SKIN: Warm, dry, normal turgor, no rashes or lesions noted. LABS Laboratory Results - last 24 hr 10/31/18 10/31/18 06:00 06:00 WBC 7.0 RBC 4.90 Hgb 12.7 Hct 39.3 MCV 80.2 MCH 25.8 MCHC 32.2 RDW 17.0 H Plt Count 185 MPV 10.9 Absolute Neuts (auto) 4.4 Neutrophils % 63.5 Lymphocytes % 24.2 Monocytes % 11.1 H Eosinophils % 1.0 Basophils % 0.2 Nucleated RBC % 0 Sodium 143 Potassium 4.1 Chloride 109 H Carbon Dioxide 27 Anion Gap 7 L BUN 11.2 Creatinine 0.7 Est GFR (CKD-EPI)AfAm 113.98 Est GFR (CKD-EPI)NonAf 98.34 Random Glucose 84 Calcium 9.0 Total Bilirubin 0.3 AST 12 L ALT 16 Alkaline Phosphatase 92 Total Protein 6.[address] abdomen: A moderate-sized umbilical hernia is noted containing fat only. Minimal to mild linear soft tissue stranding is seen within the herniated fat. There is mild nonspecific curvilinear wall thickening along the left lateral border of the subcutaneous hernia sac. Right inguinal hernia containing fat only. Small bilateral nonobstructing renal calculi. Bilateral adrenal nodules are noted very likely representing adenomas on a statistical basis. Biochemical evaluation is suggested as well as 3 month follow-up noncontrast MRI or CT to document stability. HOSPITAL COURSE: Date of Admission:10/30/18 68 yo M w/ no significant PMH presented to ED for increased urinary frequency. pt also states he feels that his hernia has increased in size. pt denies abdominal pain or pain where the hernia is. pt was afebrile and no leukocytosis. While in the hospital, pt had a CT which was showed an umbilical hernia containing fat with no strangulation or incarceration. the pt was seen by surgery who did not warrant any further surgical management. pt is recommended to follow up with his PCP outpt for his hcm. Pt is recommended for 3 month f/u for MRI or CT to check for stability of incidenctal ct finding of b/ l adrenal adenoma. Date of Discharge: 10/31/18 Minutes to complete discharge: 36 Discharge Summary Reason For Visit: ULCERATIVE LESION,UMBILICAL HERNIA Condition: Good - Instructions Diet, Activity, Other Instructions: You came into the hospital to check on your abdominal hernia. You were seen by the surgeon who does not feel that intervention is needed. You had a CT of your abdomen revealing: -You have small kidney stones in both kidneys.You should follow up with your urologist (Dr. Lang) outside of the hospital. -You have nodules on both of your adrenals, you should get a repeat CT or MRI in 3 months. We will call you if there are any positive results from your wound or blood cultures. You may follow up with our clinic in the [facility] for your routine healthcare management. You have scheduled a follow up appointment with Dr. Tinoco on Monday--IT IS VERY IMPORTANT YOU KEEP THIS APPOINTMENT Please return to the ER if you have any signs or symptoms of chest pain, shortness of breath, uncontrollable fever, chills, nausea, vomiting, numbness, tingling, or weakness in any part of your body, changes in vision, or slurred speech. Please return to the ER if symptoms persist, worsen, or new symptoms arise Referrals: Paul Ring MD [Staff Physician] - Jo Tinoco MD [Staff Physician] - Jacob Smith MD [Staff Physician] - Disposition: HOME - Home Medications Comprehensive Discharge Medication List: Ambulatory Orders NK [No Known Home Medication] 10/30/18 This patient is new to me today: Yes Date on this admission: 11/01/18 Emergency Visit: Yes ED Registration Date: 10/30/18 Care time: The patient presented to the Emergency Department on the above date and was hospitalized for further evaluation of their emergent condition. Critical Care patient: No - Discharge Referral Referred to [facility] No ATTENDING PHYSICIAN STATEMENT I saw and evaluated the patient. I reviewed the resident's note and discussed the case with the resident. I agree with the resident's findings and plan as documented. SUBJECTIVE: OBJECTIVE: ASSESSMENT AND PLAN:
== END 2018-10-31 12:30 | disposition home or self-care (01) | DRG 395 ==
LOC: JER 13:30 → JERBED 18:37
PROVIDERS: ADMIT Internal Medicine
DX: K42.0 Umbilical hernia with obstruction, without gangrene (principal); R35.0 Frequency of micturition; I10 Essential (primary) hypertension; F81.9 Developmental disorder of scholastic skills, unspecified; R41.89 Other symptoms and signs involving cognitive functions and awareness; D35.02 Benign neoplasm of left adrenal gland; D35.01 Benign neoplasm of right adrenal gland; N20.0 Calculus of kidney
CPT/HCPCS: 36415; 74177-TC; 80053; 81003; 83605; 85025; 85610; 85730; 86850; 86900; 86901; 87070; 87077; 87086; 87186; 87205; 99285-25

== ENCOUNTER 2020-06-22 16:44 | Inpatient (IN) | payer BC, OTHER ==
[2020-06-22 19:04] LABS: BASO % 0.2 % (0-2.0); EOS % 0.1 % (0-4.5); HEMATOCRIT 33.6 % (35.4-49); HEMOGLOBIN 10.5 GM/dL (11.7-16.9); LYMPH % 8.4 % (8-40); MCH 24.3 pg (25.7-33.7); MCHC 31.2 g/dl (32.0-35.9); MEAN CELL VOLUME 77.8 fl (80-96); MEAN PLT VOLUME 10.3 fl (7.5-11.1); MONO % 4.3 % (3.8-10.2); PLATELET COUNT 208 K/MM3 (134-434); RBC 4.32 M/mm3 (4.00-5.60); RDW 18.4 % (11.9-15.9); WHITE BLOOD COUNT 12.3 K/mm3 (4.0-10.0)
[2020-06-22 19:19] LABS: INR 1.09 (0.83-1.09); POTASSIUM 4.4 mmol/L (3.5-5.1); PROTHROMBIN TIME (PATIENT) 13.1 SEC (9.7-13.0)
[2020-06-22 19:22] LABS: ACTIVATED PTT 28.2 SECONDS (25.2-36.5); ALBUMIN 3.2 g/dl (3.4-5.0); BLOOD UREA NITROGEN 15.7 mg/dL (7-18); CALCIUM 9.4 mg/dL (8.5-10.1)
[2020-06-22 19:26] LABS: CREATININE 0.8 mg/dL (0.55-1.3)
[2020-06-22 19:27] LABS: BILIRUBIN,TOTAL 0.3 mg/dL (0.2-1); TOT PROT 6.7 g/dl (6.4-8.2)
[2020-06-22] MEDS ORDERED: LACTATED RINGERS SOLUTION 1000 ML INFUS.BAG IV ONE ×2 (19:51→23:07)
[2020-06-22 23:33] LABS: URINE APPEARANCE CLEAR; URINE BILIRUBIN NEGATIVE (NEGATIVE); URINE COLOR YELLOW; URINE GLUCOSE (UA) NEGATIVE (NEGATIVE); URINE KETONE NEGATIVE (NEGATIVE); URINE LEUK ESTERASE NEGATIVE (NEGATIVE); URINE NITRITE NEGATIVE (NEGATIVE); URINE PROTEIN NEGATIVE (NEGATIVE); URINE UROBILINOGEN 0.2 mg/dL (0.2-1.0)
[2020-06-23] MEDS ORDERED: ACETAMINOPHEN 325 MG TABLET (FP) PO PRN (00:56)
[2020-06-23] MEDS ORDERED: METOCLOPRAMIDE HCL INJECTION 10 MG/2 ML VIAL IVPUSH PRN (00:58)
[2020-06-23 07:55] LABS: BASO % 0.2 % (0-2.0); EOS % 0.4 % (0-4.5); HEMOGLOBIN 9.1 GM/dL (11.7-16.9); LYMPH % 18.2 % (8-40); MCH 25.2 pg (25.7-33.7); MCHC 32.4 g/dl (32.0-35.9); MEAN CELL VOLUME 77.8 fl (80-96); MEAN PLT VOLUME 10.7 fl (7.5-11.1); MONO % 10.9 % (3.8-10.2); NEUT % 70.3 % (42.8-82.8); PLATELET COUNT 178 K/MM3 (134-434); RDW 17.9 % (11.9-15.9); WHITE BLOOD COUNT 10.9 K/mm3 (4.0-10.0)
[2020-06-23 08:11] LABS: POTASSIUM 3.8 mmol/L (3.5-5.1)
[2020-06-23 08:13] LABS: CALCIUM 8.8 mg/dL (8.5-10.1)
[2020-06-23 08:14] LABS: ALBUMIN 2.7 g/dl (3.4-5.0); BLOOD UREA NITROGEN 13.1 mg/dL (7-18); MAGNESIUM 1.7 mg/dL (1.8-2.4)
[2020-06-23 08:16] LABS: CREATININE 0.7 mg/dL (0.55-1.3)
[2020-06-23 08:17] LABS: PHOSPHOROUS 2.4 mg/dL (2.5-4.9)
[2020-06-23 08:18] LABS: BILIRUBIN,TOTAL 0.3 mg/dL (0.2-1)
[2020-06-23] MEDS: LACTATED RINGERS SOLUTION 1,000 ML IV SCH (09:00)
[2020-06-23] MEDS ORDERED: METOCLOPRAMIDE HCL INJECTION 10 MG/2 ML VIAL ONE (10:15)
[2020-06-23 11:59] VITALS: BMI 33.3
[2020-06-23] MEDS ORDERED: BISACODYL 5 MG TABLET.DR (FP) PO ONE (16:00)
[2020-06-23] MEDS ORDERED: PEG 3350/NA SULF BICARB CL/KCL 4000 ML SOLN.RECON PO ONE (17:00)
[2020-06-24 13:49] LABS: HEMATOCRIT 31.8 % (35.4-49); HEMOGLOBIN 10.2 GM/dL (11.7-16.9); MCH 25.1 pg (25.7-33.7); MCHC 32.1 g/dl (32.0-35.9); MEAN CELL VOLUME 78.2 fl (80-96); MEAN PLT VOLUME 10.5 fl (7.5-11.1); PLATELET COUNT 184 K/MM3 (134-434); RBC 4.07 M/mm3 (4.00-5.60); RDW 18.5 % (11.9-15.9)
[2020-06-24 14:23] LABS: POTASSIUM 3.6 mmol/L (3.5-5.1)
[2020-06-24 14:27] LABS: ALBUMIN 3.2 g/dl (3.4-5.0); CALCIUM 9.4 mg/dL (8.5-10.1)
[2020-06-24 14:29] LABS: BLOOD UREA NITROGEN 6.5 mg/dL (7-18); MAGNESIUM 1.9 mg/dL (1.8-2.4)
[2020-06-24 14:32] LABS: CREATININE 0.6 mg/dL (0.55-1.3); PHOSPHOROUS 3.1 mg/dL (2.5-4.9)
[2020-06-24 14:33] LABS: TOT PROT 6.9 g/dl (6.4-8.2)
[2020-06-24 14:35] LABS: BILIRUBIN,TOTAL 0.5 mg/dL (0.2-1)
[2020-06-24] MEDS: LACTATED RINGERS SOLUTION 1,000 ML IV SCH (14:52)
[2020-06-25] MEDS: PANTOPRAZOLE 40 MG TABLET PO SCH (09:58)
[2020-06-25] MEDS: METOCLOPRAMIDE HCL 10 MG TABLET (FP) PO SCH ×2 (10:08→15:52)
[2020-06-26] MEDS: METOCLOPRAMIDE HCL 10 MG TABLET (FP) PO SCH ×3 (06:41→17:14)
[2020-06-26] MEDS: PANTOPRAZOLE 40 MG TABLET PO SCH (09:53)
[2020-06-26 14:31] VITALS: BP 157/88; PULSE 95; TEMP 98.1
== END 2020-06-26 18:35 | disposition home or self-care (01) | DRG 394 ==
LOC: JER 16:44 → JERBED 23:12 → J8W 06-23 10:46 → J6S 06-24 17:08
PROVIDERS: ADMIT Hospitalist; ATTEND Family Medicine
PROC: 0DJD8ZZ Inspection of Lower Intestinal Tract, Via Natural or Artificial Opening Endoscopic (ICD-10-PCS; principal; 2020-06-24 15:00)
DX: K64.1 Second degree hemorrhoids (principal); E87.2 Acidosis; K57.30 Diverticulosis of large intestine without perforation or abscess without bleeding; R00.0 Tachycardia, unspecified; N40.0 Benign prostatic hyperplasia without lower urinary tract symptoms; D72.829 Elevated white blood cell count, unspecified; I45.10 Unspecified right bundle-branch block; I10 Essential (primary) hypertension; K42.9 Umbilical hernia without obstruction or gangrene; K64.8 Other hemorrhoids; E27.9 Disorder of adrenal gland, unspecified; E66.9 Obesity, unspecified; Z68.33 Body mass index [BMI] 33.0-33.9, adult; K64.5 Perianal venous thrombosis; D50.0 Iron deficiency anemia secondary to blood loss (chronic)
CPT/HCPCS: 36415; 71045-TC-FY; 74174-TC; 80053; 81003; 82272; 82728; 83540; 83550; 83605; 83690; 83735; 84100; 85025; 85027; 85610; 85730; 86850; 86900; 86901; 87040; 87086; 93005; 93010; 97116-GP; 97161-GP; 99285-25; C9803; Q9967; U0003

== ENCOUNTER 2021-08-11 09:23 | Inpatient (IN) | payer BC, MEDICARE ==
[2021-08-11 10:15] LABS: HEMOGLOBIN 12.8 GM/dL (11.7-16.9); MCH 23.7 pg (25.7-33.7); MCHC 31.3 g/dl (32.0-35.9); PLATELET COUNT 339 10^3/uL (134-434); RBC 5.39 M/mm3 (4.00-5.60); RDW 18.9 % (11.9-15.9); WHITE BLOOD COUNT 11.3 K/mm3 (4.0-10.0)
[2021-08-11] MEDS ORDERED: ONDANSETRON 4 MG/2 ML VIAL IVPUSH ONE (10:18)
[2021-08-11] MEDS ORDERED: LACTATED RINGERS SOLUTION 1,000 ML/1,000 ML INFUS.BAG IV STA ×2 (10:18→10:46)
[2021-08-11 10:25] LABS: INR 1.19 (0.83-1.09); PROTHROMBIN TIME (PATIENT) 13.7 SEC (9.7-13.0)
[2021-08-11 10:31] LABS: LACTIC ACID 4.4 mmol/L (0.4-2.0)
[2021-08-11 10:34] LABS: CALCIUM 11.5 mg/dL (8.5-10.1)
[2021-08-11 10:35] LABS: ALBUMIN 3.8 g/dl (3.4-5.0); BLOOD UREA NITROGEN 57.3 mg/dL (7-18)
[2021-08-11 10:38] LABS: CREATININE 4.5 mg/dL (0.55-1.3)
[2021-08-11] MEDS ORDERED: ONDANSETRON 4 MG/2 ML VIAL ONE (10:38)
[2021-08-11 10:40] LABS: BILIRUBIN,TOTAL 0.4 mg/dL (0.2-1); TOT PROT 9.1 g/dl (6.4-8.2)
[2021-08-11 10:49] LABS: VENOUS BASE EXCESS -3.2 mmol/L (-2-2); VENOUS O2 SATURATION 91.1 % (70-80); VENOUS PCO2 31.4 mmHg (38-52); VENOUS PH 7.425 (7.310-7.410)
[2021-08-11 12:07] LABS: ANISOCYTOSIS 0; MACROCYTOSIS 0
[2021-08-11 13:09] LABS: EPI CELLS >36 /uL (0-25.1); HYALINE CASTS 7 /uL (0-3.1); URINE APPEARANCE CLOUDY; URINE BILIRUBIN 2+ (NEGATIVE); URINE COLOR DK YELLOW; URINE GLUCOSE (UA) TRACE (NEGATIVE); URINE KETONE 1+ (NEGATIVE); URINE LEUK ESTERASE NEGATIVE (NEGATIVE); URINE NITRITE NEGATIVE (NEGATIVE); URINE PROTEIN 1+ (NEGATIVE); URINE RBC 10 /uL (0-23.9); URINE WBC 25 /uL (0-25.8)
[2021-08-11 13:58] LABS: URINE BACTERIA MODERATED /uL (0-1359)
[2021-08-11 14:22] LABS: CALCIUM 10.4 mg/dL (8.5-10.1)
[2021-08-11 14:24] LABS: ALBUMIN 3.3 g/dl (3.4-5.0); BLOOD UREA NITROGEN 58.1 mg/dL (7-18)
[2021-08-11 14:26] LABS: CREATININE 4.4 mg/dL (0.55-1.3)
[2021-08-11 14:27] LABS: BILIRUBIN,TOTAL 0.4 mg/dL (0.2-1); LACTIC ACID 3.6 mmol/L (0.4-2.0); TOT PROT 8.1 g/dl (6.4-8.2)
[2021-08-11] MEDS ORDERED: MIDAZOLAM HCL 2 MG/2 ML SINGLE DOSE VIAL ONE (15:32)
[2021-08-11] MEDS ORDERED: PROPOFOL 20 ML ONE (15:32)
[2021-08-11] MEDS ORDERED: LIDOCAINE HCL/PF 2% SDV 5ML VIAL ONE (15:45)
[2021-08-11] MEDS ORDERED: ONDANSETRON 4 MG/2 ML VIAL IVPUSH PRN ×4 (16:11→20:43)
[2021-08-11] MEDS ORDERED: CEFTRIAXONE 2 GM in DEXTROSE 5%-WATER 100 ML IVPB SCH (16:15)
[2021-08-11] MEDS ORDERED: PANTOPRAZOLE SODIUM 40 MG VIAL IVPUSH SCH (16:15)
[2021-08-11] MEDS ORDERED: SUCCINYLCHOLINE CHLORIDE 200 MG/10 ML SYRINGE ONE (16:31)
[2021-08-11] MEDS ORDERED: ROCURONIUM BROMIDE 50 MG/5 ML SYRINGE ONE ×2 (16:53→17:25)
[2021-08-11] MEDS ORDERED: ceFAZolin SODIUM 1 GM VIAL IVPB ONE (16:54)
[2021-08-11] MEDS ORDERED: ceFAZolin SODIUM 1 GM VIAL ONE (17:08)
[2021-08-11] MEDS ORDERED: METOPROLOL TARTRATE 5 MG/5 ML VIAL ONE (17:08)
[2021-08-11] MEDS ORDERED: BUPIVACAINE HCL/PF 0.5% (5MG/ML) 10 ML VIAL ONE (17:55)
[2021-08-11] MEDS ORDERED: BUPIVACAINE HCL/PF 0.5% (5 MG/ML) 30 ML VIAL IJ ONE (18:20)
[2021-08-11] MEDS ORDERED: NEOSTIGMINE METHYLSULFATE 0.5 MG/1 ML - 10 ML MDV ONE (18:21)
[2021-08-11] MEDS ORDERED: GLYCOPYRROLATE 0.2 MG/1 ML VIAL ONE (18:22)
[2021-08-11] MEDS ORDERED: morphine SULFATE 4 MG/ML VIAL IVPUSH PRN ×2 (19:06→20:43)
[2021-08-11] MEDS ORDERED: ACETAMINOPHEN 1000 MG/100 ML BAG IVPB PRN ×2 (19:09→20:50)
[2021-08-11] MEDS: SODIUM CHLORIDE 1,000 ML IV SCH (20:00)
[2021-08-11] MEDS: LACTATED RINGERS SOLUTION 1,000 ML IV SCH (20:00)
[2021-08-11] MEDS ORDERED: DEXTROSE 50%-WATER - 25 GM/50 ML VIAL IVPUSH PRN (20:46)
[2021-08-11 20:57] VITALS: BMI 27.7
[2021-08-11 21:07] LABS: LACTIC ACID 5.2 mmol/L (0.4-2.0)
[2021-08-11 21:15] LABS: HEMATOCRIT 34.4 % (35.4-49); HEMOGLOBIN 10.7 GM/dL (11.7-16.9); MCH 24.2 pg (25.7-33.7); MCHC 31.1 g/dl (32.0-35.9); MEAN CELL VOLUME 77.6 fl (80-96); MEAN PLT VOLUME 9.9 fl (7.5-11.1); PLATELET COUNT 225 10^3/uL (134-434); RBC 4.43 M/mm3 (4.00-5.60); RDW 18.8 % (11.9-15.9); WHITE BLOOD COUNT 4.5 K/mm3 (4.0-10.0)
[2021-08-11 21:30] LABS: CALCIUM 9.5 mg/dL (8.5-10.1)
[2021-08-11 21:31] LABS: ALBUMIN 2.9 g/dl (3.4-5.0); BLOOD UREA NITROGEN 58.8 mg/dL (7-18); MAGNESIUM 2.2 mg/dL (1.8-2.4)
[2021-08-11 21:34] LABS: CREATININE 4.4 mg/dL (0.55-1.3)
[2021-08-11 21:36] LABS: BILIRUBIN,TOTAL 0.3 mg/dL (0.2-1)
[2021-08-11] MEDS ORDERED: CHLORHEXIDINE GLUCONATE 4% CLEANSER FOR DECOLONIZATION TP SCH (22:00)
[2021-08-11] MEDS ORDERED: INSULIN SLIDING SCALE (NOVOLOG) 1 VIAL SQ SCH (22:00)
[2021-08-11 22:37] LABS: ANISOCYTOSIS 1+; MACROCYTOSIS 0
[2021-08-11] MEDS: MUPIROCIN 2% TOPICAL OINTMENT FOR DECOLONIZATION NS SCH (22:48)
[2021-08-11] MEDS: HEPARIN NA (PORCINE) 5,000 UNITS/ML 1ML VIAL SQ SCH (22:48)
[2021-08-11] MEDS: INSULIN SLIDING SCALE (NOVOLOG) 1 VIAL SQ SCH (22:48)
[2021-08-11] MEDS: DEXTROSE 5%-LACTATED RINGERS 1,000 ML IV SCH (22:49)
[2021-08-12] MEDS: LACTATED RINGERS SOLUTION 1,000 ML IV SCH (00:28)
[2021-08-12] MEDS: SODIUM CHLORIDE 1,000 ML IV SCH (00:29)
[2021-08-12 06:51] LABS: HEMATOCRIT 31.6 % (35.4-49); HEMOGLOBIN 9.9 GM/dL (11.7-16.9); MCH 24.2 pg (25.7-33.7); MCHC 31.3 g/dl (32.0-35.9); MEAN CELL VOLUME 77.2 fl (80-96); MEAN PLT VOLUME 9.8 fl (7.5-11.1); PLATELET COUNT 220 10^3/uL (134-434); RBC 4.09 M/mm3 (4.00-5.60); RDW 18.8 % (11.9-15.9); WHITE BLOOD COUNT 5.7 K/mm3 (4.0-10.0)
[2021-08-12] MEDS: DEXTROSE 5%-LACTATED RINGERS 1,000 ML IV SCH ×2 (06:53→18:14)
[2021-08-12] MEDS: INSULIN SLIDING SCALE (NOVOLOG) 1 VIAL SQ SCH ×4 (07:00→22:23)
[2021-08-12 07:11] LABS: ALBUMIN 2.4 g/dl (3.4-5.0); BLOOD UREA NITROGEN 53.9 mg/dL (7-18); CALCIUM 8.9 mg/dL (8.5-10.1); MAGNESIUM 2.2 mg/dL (1.8-2.4)
[2021-08-12 07:13] LABS: CREATININE 2.8 mg/dL (0.55-1.3); PHOSPHOROUS 3.9 mg/dL (2.5-4.9)
[2021-08-12 07:14] LABS: BILIRUBIN,TOTAL 0.3 mg/dL (0.2-1); TOT PROT 6.1 g/dl (6.4-8.2)
[2021-08-12 07:15] LABS: LACTIC ACID 3.6 mmol/L (0.4-2.0)
[2021-08-12] MEDS: HEPARIN NA (PORCINE) 5,000 UNITS/ML 1ML VIAL SQ SCH ×2 (09:43→22:23)
[2021-08-12] MEDS: MUPIROCIN 2% TOPICAL OINTMENT FOR DECOLONIZATION NS SCH (09:44)
[2021-08-12 09:53] LABS: ANISOCYTOSIS 1+; MACROCYTOSIS 0; OVALOCYTE 1+
[2021-08-12] MEDS ORDERED: PANTOPRAZOLE SODIUM 40 MG VIAL IVPUSH SCH (10:00)
[2021-08-12] MEDS ORDERED: chlorproMAZINE HCL 25 MG/1 ML AMP IM ONE (16:59)
[2021-08-12] MEDS ORDERED: ONDANSETRON 4 MG/2 ML VIAL IVPUSH PRN (17:34)
[2021-08-12] MEDS ORDERED: morphine SULFATE 4 MG/ML VIAL IVPUSH PRN (17:34)
[2021-08-12] MEDS ORDERED: ACETAMINOPHEN 1000 MG/100 ML BAG IVPB PRN (17:34)
[2021-08-13] MEDS: INSULIN SLIDING SCALE (NOVOLOG) 1 VIAL SQ SCH ×4 (06:05→22:31)
[2021-08-13] MEDS: DEXTROSE 5%-LACTATED RINGERS 1,000 ML IV SCH ×2 (09:28→16:30)
[2021-08-13] MEDS: HEPARIN NA (PORCINE) 5,000 UNITS/ML 1ML VIAL SQ SCH ×2 (09:37→22:29)
[2021-08-13] MEDS: PANTOPRAZOLE SODIUM 40 MG VIAL IVPUSH SCH (12:01)
[2021-08-13 13:19] LABS: ALBUMIN 2.3 g/dl (3.4-5.0); BILIRUBIN,TOTAL 0.3 mg/dL (0.2-1); BLOOD UREA NITROGEN 26.4 mg/dL (7-18); CALCIUM 9.5 mg/dL (8.5-10.1); CREATININE 0.9 mg/dL (0.55-1.3); TOT PROT 6.1 g/dl (6.4-8.2)
[2021-08-13] MEDS ORDERED: chlorproMAZINE HCL 25 MG/1 ML AMP IM PRN (14:39)
[2021-08-13] MEDS: D5-1/2NS+20 MEQ KCL - 20 MEQ/1,000 ML INFUS.BAG IV SCH (22:32)
[2021-08-14] MEDS: INSULIN SLIDING SCALE (NOVOLOG) 1 VIAL SQ SCH ×4 (06:22→22:32)
[2021-08-14] MEDS: PANTOPRAZOLE SODIUM 40 MG VIAL IVPUSH SCH (09:00)
[2021-08-14] MEDS: D5-1/2NS+20 MEQ KCL - 20 MEQ/1,000 ML INFUS.BAG IV SCH (09:00)
[2021-08-14] MEDS: HEPARIN NA (PORCINE) 5,000 UNITS/ML 1ML VIAL SQ SCH ×2 (09:00→22:10)
[2021-08-14 09:36] LABS: BLOOD UREA NITROGEN 19.4 mg/dL (7-18); CALCIUM 9.6 mg/dL (8.5-10.1)
[2021-08-14 09:38] LABS: ALBUMIN 2.2 g/dl (3.4-5.0)
[2021-08-14 09:41] LABS: CREATININE 0.7 mg/dL (0.55-1.3)
[2021-08-14 09:42] LABS: TOT PROT 5.6 g/dl (6.4-8.2)
[2021-08-14 09:44] LABS: BILIRUBIN,TOTAL 0.3 mg/dL (0.2-1)
[2021-08-14] MEDS ORDERED: D5-1/2NS+20 MEQ KCL - 20 MEQ/1,000 ML INFUS.BAG IV SCH (10:00)
[2021-08-14] MEDS: KCL 10 MEQ IVPB 10 MEQ/100 ML INFUS.BAG IVPB SCH ×2 (12:00→13:25)
[2021-08-14] MEDS ORDERED: KCL 10 MEQ IVPB 10 MEQ/100 ML INFUS.BAG IVPB SCH (13:45)
[2021-08-14] MEDS ORDERED: DEXTROSE 5%-WATER - 1,000 ML with POTASSIUM CHLORIDE 20 MEQ IV SCH (14:00)
[2021-08-14] MEDS: BENZOCAINE/MENTH/CETYLPYRD CL 1 EACH LOZENGE MM PRN (17:49)
[2021-08-14] MEDS: POTASSIUM CHLORIDE 20 MEQ in DEXTROSE 5%-WATER - 1,000 ML IVPB SCH (18:16)
[2021-08-14] MEDS: BACITRACIN 15 GM TUBE TOPICAL OINTMENT TP SCH (22:11)
[2021-08-15] MEDS: POTASSIUM CHLORIDE 20 MEQ in DEXTROSE 5%-WATER - 1,000 ML IVPB SCH ×4 (05:13→16:35)
[2021-08-15] MEDS: INSULIN SLIDING SCALE (NOVOLOG) 1 VIAL SQ SCH ×4 (07:42→22:28)
[2021-08-15 08:45] LABS: HEMATOCRIT 28.8 % (35.4-49); HEMOGLOBIN 9.1 GM/dL (11.7-16.9); MCH 24.2 pg (25.7-33.7); MCHC 31.5 g/dl (32.0-35.9); MEAN CELL VOLUME 76.9 fl (80-96); MEAN PLT VOLUME 8.7 fl (7.5-11.1); PLATELET COUNT 182 10^3/uL (134-434); RBC 3.75 M/mm3 (4.00-5.60); RDW 18.5 % (11.9-15.9); WHITE BLOOD COUNT 7.4 K/mm3 (4.0-10.0)
[2021-08-15 09:10] LABS: CALCIUM 8.9 mg/dL (8.5-10.1)
[2021-08-15 09:11] LABS: BLOOD UREA NITROGEN 15.8 mg/dL (7-18); MAGNESIUM 1.9 mg/dL (1.8-2.4)
[2021-08-15 09:14] LABS: CREATININE 0.6 mg/dL (0.55-1.3); TOT PROT 5.4 g/dl (6.4-8.2)
[2021-08-15 09:15] LABS: BILIRUBIN,TOTAL 0.5 mg/dL (0.2-1)
[2021-08-15] MEDS: HEPARIN NA (PORCINE) 5,000 UNITS/ML 1ML VIAL SQ SCH ×2 (09:19→22:27)
[2021-08-15] MEDS: PANTOPRAZOLE SODIUM 40 MG VIAL IVPUSH SCH (09:20)
[2021-08-15 11:08] LABS: ANISOCYTOSIS 0; HELMET CELLS 0; HOWELL-JOLLY BODIES 0; MACROCYTOSIS 0; OVALOCYTE 0; ROULEAU 0; SICKELED CELLS 0; TARGET CELLS 0; TEAR DROP CELLS 0; TOXIC GRANULATION 0
[2021-08-15] MEDS: chlorproMAZINE HCL 25 MG/1 ML AMP IM PRN (17:19)
[2021-08-15] MEDS: BACITRACIN 15 GM TUBE TOPICAL OINTMENT TP SCH (22:27)
[2021-08-16] MEDS: POTASSIUM CHLORIDE 20 MEQ in DEXTROSE 5%-WATER - 1,000 ML IVPB SCH ×4 (02:13→23:18)
[2021-08-16] MEDS: chlorproMAZINE HCL 25 MG/1 ML AMP IM PRN ×2 (02:14→07:56)
[2021-08-16] MEDS: INSULIN SLIDING SCALE (NOVOLOG) 1 VIAL SQ SCH ×4 (07:41→23:14)
[2021-08-16] MEDS: HEPARIN NA (PORCINE) 5,000 UNITS/ML 1ML VIAL SQ SCH ×2 (11:01→23:14)
[2021-08-16] MEDS: PANTOPRAZOLE SODIUM 40 MG VIAL IVPUSH SCH (11:02)
[2021-08-16 12:41] LABS: BLOOD UREA NITROGEN 12.5 mg/dL (7-18); CREATININE 0.6 mg/dL (0.55-1.3)
[2021-08-16 12:43] LABS: BILIRUBIN,TOTAL 0.4 mg/dL (0.2-1); CALCIUM 9.3 mg/dL (8.5-10.1); TOT PROT 5.3 g/dl (6.4-8.2)
[2021-08-16] MEDS: BACITRACIN 15 GM TUBE TOPICAL OINTMENT TP SCH (23:14)
[2021-08-17] MEDS: POTASSIUM CHLORIDE 20 MEQ in DEXTROSE 5%-WATER - 1,000 ML IVPB SCH ×4 (06:29→22:40)
[2021-08-17] MEDS: chlorproMAZINE HCL 25 MG/1 ML AMP IM PRN ×2 (06:31→13:59)
[2021-08-17] MEDS: INSULIN SLIDING SCALE (NOVOLOG) 1 VIAL SQ SCH ×4 (06:36→21:16)
[2021-08-17] MEDS: LOSARTAN POTASSIUM 50 MG TABLET PO SCH (10:11)
[2021-08-17] MEDS: PANTOPRAZOLE 40 MG TABLET PO SCH (10:12)
[2021-08-17] MEDS: HEPARIN NA (PORCINE) 5,000 UNITS/ML 1ML VIAL SQ SCH ×2 (10:12→21:16)
[2021-08-17] MEDS ORDERED: METOCLOPRAMIDE HCL INJECTION 10 MG/2 ML VIAL IVPUSH ONE (15:54)
[2021-08-17] MEDS: BACITRACIN 15 GM TUBE TOPICAL OINTMENT TP SCH (21:16)
[2021-08-18] MEDS: POTASSIUM CHLORIDE 20 MEQ in DEXTROSE 5%-WATER - 1,000 ML IVPB SCH ×2 (01:32→15:44)
[2021-08-18] MEDS: INSULIN SLIDING SCALE (NOVOLOG) 1 VIAL SQ SCH ×4 (06:16→21:57)
[2021-08-18 09:03] LABS: HEMATOCRIT 29.1 % (35.4-49); HEMOGLOBIN 9.1 GM/dL (11.7-16.9); MCH 23.8 pg (25.7-33.7); MCHC 31.3 g/dl (32.0-35.9); MEAN CELL VOLUME 76.1 fl (80-96); MEAN PLT VOLUME 8.5 fl (7.5-11.1); PLATELET COUNT 154 10^3/uL (134-434); RBC 3.82 M/mm3 (4.00-5.60); RDW 18.6 % (11.9-15.9); WHITE BLOOD COUNT 6.7 K/mm3 (4.0-10.0)
[2021-08-18 09:27] LABS: ALBUMIN 1.8 g/dl (3.4-5.0); BLOOD UREA NITROGEN 5.8 mg/dL (7-18); CALCIUM 8.6 mg/dL (8.5-10.1); MAGNESIUM 1.8 mg/dL (1.8-2.4)
[2021-08-18 09:30] LABS: CREATININE 0.5 mg/dL (0.55-1.3)
[2021-08-18 09:32] LABS: BILIRUBIN,TOTAL 0.3 mg/dL (0.2-1); TOT PROT 5.3 g/dl (6.4-8.2)
[2021-08-18] MEDS: LOSARTAN POTASSIUM 50 MG TABLET PO SCH (10:17)
[2021-08-18] MEDS: HEPARIN NA (PORCINE) 5,000 UNITS/ML 1ML VIAL SQ SCH ×2 (10:17→21:54)
[2021-08-18] MEDS: PANTOPRAZOLE 40 MG TABLET PO SCH (10:17)
[2021-08-18] MEDS: chlorproMAZINE HCL 25 MG/1 ML AMP IM PRN (18:22)
[2021-08-18] MEDS ORDERED: ALBUTEROL SO4 0.083% IH SOL 2.5 MG/3 ML VIAL.NEB. NEB PRN (20:01)
[2021-08-18] MEDS: chlorproMAZINE HCL 25 MG TABLET PO SCH (21:54)
[2021-08-18] MEDS: BACITRACIN 15 GM TUBE TOPICAL OINTMENT TP SCH (21:55)
[2021-08-18 23:32] LABS: EPI CELLS 9 /uL (0-25.1); HYALINE CASTS 2 /uL (0-3.1); URINE APPEARANCE CLEAR; URINE BACTERIA 9 /uL (0-1359); URINE BILIRUBIN NEGATIVE (NEGATIVE); URINE COLOR YELLOW; URINE GLUCOSE (UA) TRACE (NEGATIVE); URINE KETONE NEGATIVE (NEGATIVE); URINE LEUK ESTERASE NEGATIVE (NEGATIVE); URINE NITRITE NEGATIVE (NEGATIVE); URINE PROTEIN TRACE (NEGATIVE); URINE RBC 23 /uL (0-23.9); URINE WBC 15 /uL (0-25.8)
[2021-08-19] MEDS: INSULIN SLIDING SCALE (NOVOLOG) 1 VIAL SQ SCH ×2 (06:16→11:54)
[2021-08-19] MEDS: chlorproMAZINE HCL 25 MG TABLET PO SCH ×3 (06:16→21:51)
[2021-08-19 09:47] LABS: HEMATOCRIT 28.1 % (35.4-49); HEMOGLOBIN 8.7 GM/dL (11.7-16.9); MCH 23.6 pg (25.7-33.7); MEAN CELL VOLUME 76.2 fl (80-96); MEAN PLT VOLUME 8.5 fl (7.5-11.1); PLATELET COUNT 182 10^3/uL (134-434); RBC 3.68 M/mm3 (4.00-5.60); RDW 18.5 % (11.9-15.9); WHITE BLOOD COUNT 6.6 K/mm3 (4.0-10.0)
[2021-08-19] MEDS: PANTOPRAZOLE 40 MG TABLET PO SCH (10:15)
[2021-08-19] MEDS: LOSARTAN POTASSIUM 50 MG TABLET PO SCH (10:15)
[2021-08-19] MEDS: HEPARIN NA (PORCINE) 5,000 UNITS/ML 1ML VIAL SQ SCH ×2 (10:15→21:51)
[2021-08-19 10:21] LABS: ALBUMIN 1.9 g/dl (3.4-5.0); BLOOD UREA NITROGEN 10.2 mg/dL (7-18); CALCIUM 8.5 mg/dL (8.5-10.1); MAGNESIUM 1.9 mg/dL (1.8-2.4)
[2021-08-19 10:24] LABS: CREATININE 0.6 mg/dL (0.55-1.3)
[2021-08-19 10:26] LABS: BILIRUBIN,TOTAL 0.6 mg/dL (0.2-1); TOT PROT 5.5 g/dl (6.4-8.2)
[2021-08-19] MEDS: BENZOCAINE/MENTH/CETYLPYRD CL 1 EACH LOZENGE MM PRN (11:55)
[2021-08-19] MEDS ORDERED: POTASSIUM CHLORIDE TABS 20 MEQ TABLET.ER (FP) PO ONE (13:11)
[2021-08-19] MEDS ORDERED: CASIRIVIMAB/IMDEVIMAB 10 ML in SODIUM CHLORIDE 100 ML IVPB ONE (17:45)
[2021-08-19] MEDS ORDERED: BEBTELOVIMAB (EUA) 175 MG/2 ML VIAL IVPUSH ONE (20:00)
[2021-08-19] MEDS: BACITRACIN 15 GM TUBE TOPICAL OINTMENT TP SCH (21:51)
[2021-08-19] MEDS: ATORVASTATIN CA 10 MG TABLET (FP) PO SCH (21:53)
[2021-08-20] MEDS: chlorproMAZINE HCL 25 MG TABLET PO SCH (06:38)
[2021-08-20] MEDS: LOSARTAN POTASSIUM 50 MG TABLET PO SCH (09:35)
[2021-08-20] MEDS: HEPARIN NA (PORCINE) 5,000 UNITS/ML 1ML VIAL SQ SCH ×2 (09:35→22:22)
[2021-08-20] MEDS: PANTOPRAZOLE 40 MG TABLET PO SCH (09:35)
[2021-08-20] MEDS ORDERED: ACETAMINOPHEN 1000 MG/100 ML BAG IVPB PRN (09:49)
[2021-08-20 10:14] LABS: BLOOD UREA NITROGEN 11.2 mg/dL (7-18)
[2021-08-20 10:16] LABS: CALCIUM 8.8 mg/dL (8.5-10.1)
[2021-08-20 10:17] LABS: CREATININE 0.6 mg/dL (0.55-1.3)
[2021-08-20 10:18] LABS: MAGNESIUM 1.9 mg/dL (1.8-2.4)
[2021-08-20 10:54] LABS: BASO % 0.1 % (0-2.0); EOS % 0.5 % (0-4.5); HEMATOCRIT 25.7 % (35.4-49); HEMOGLOBIN 8.1 GM/dL (11.7-16.9); LYMPH % 4.2 % (8-40); MCHC 31.5 g/dl (32.0-35.9); MEAN PLT VOLUME 8.4 fl (7.5-11.1); MONO % 7.4 % (3.8-10.2); NEUT % 87.8 % (42.8-82.8); PLATELET COUNT 193 10^3/uL (134-434); RBC 3.38 M/mm3 (4.00-5.60); RDW 18.5 % (11.9-15.9); WHITE BLOOD COUNT 7.1 K/mm3 (4.0-10.0)
[2021-08-20] MEDS: DEXAMETHASONE SOD PHOSPHATE 4 MG/1 ML VIAL IVPUSH SCH (11:09)
[2021-08-20] MEDS: guaiFENesin/CODEINE 5 ML UNIT-DOSE CUPS PO PRN (11:09)
[2021-08-20] MEDS: DOCUSATE SODIUM 100 MG CAPSULE (FP) PO SCH ×2 (11:10→22:22)
[2021-08-20] MEDS: ATORVASTATIN CA 10 MG TABLET (FP) PO SCH (22:21)
[2021-08-20] MEDS: BACITRACIN 15 GM TUBE TOPICAL OINTMENT TP SCH (22:22)
[2021-08-21] MEDS: LOSARTAN POTASSIUM 50 MG TABLET PO SCH (10:04)
[2021-08-21] MEDS: PANTOPRAZOLE 40 MG TABLET PO SCH (10:04)
[2021-08-21] MEDS: DEXAMETHASONE SOD PHOSPHATE 4 MG/1 ML VIAL IVPUSH SCH (10:04)
[2021-08-21] MEDS: HEPARIN NA (PORCINE) 5,000 UNITS/ML 1ML VIAL SQ SCH ×2 (10:04→21:31)
[2021-08-21 10:17] LABS: BASO % 0.1 % (0-2.0); HEMATOCRIT 27.2 % (35.4-49); HEMOGLOBIN 8.7 GM/dL (11.7-16.9); LYMPH % 3.6 % (8-40); MCH 24.2 pg (25.7-33.7); MEAN CELL VOLUME 75.7 fl (80-96); MEAN PLT VOLUME 8.3 fl (7.5-11.1); MONO % 9.6 % (3.8-10.2); NEUT % 86.7 % (42.8-82.8); PLATELET COUNT 220 10^3/uL (134-434); RBC 3.59 M/mm3 (4.00-5.60); RDW 18.5 % (11.9-15.9); WHITE BLOOD COUNT 7.3 K/mm3 (4.0-10.0)
[2021-08-21 10:33] LABS: BLOOD UREA NITROGEN 12.2 mg/dL (7-18); CALCIUM 9.2 mg/dL (8.5-10.1)
[2021-08-21 10:36] LABS: PHOSPHOROUS 2.2 mg/dL (2.5-4.9)
[2021-08-21 10:37] LABS: BILIRUBIN,TOTAL 0.3 mg/dL (0.2-1); CREATININE 0.5 mg/dL (0.55-1.3)
[2021-08-21] MEDS: ATORVASTATIN CA 10 MG TABLET (FP) PO SCH (21:31)
[2021-08-21] MEDS: BACITRACIN 15 GM TUBE TOPICAL OINTMENT TP SCH (21:31)
[2021-08-21] MEDS: DOCUSATE SODIUM 100 MG CAPSULE (FP) PO SCH (21:31)
[2021-08-21] MEDS: NAPH,MB-DB/K PH,MBDB POWDER PACKET PO SCH (21:31)
[2021-08-22] MEDS: guaiFENesin/CODEINE 5 ML UNIT-DOSE CUPS PO PRN (06:06)
[2021-08-22] MEDS: HEPARIN NA (PORCINE) 5,000 UNITS/ML 1ML VIAL SQ SCH ×2 (09:49→21:57)
[2021-08-22] MEDS: LOSARTAN POTASSIUM 50 MG TABLET PO SCH (09:49)
[2021-08-22] MEDS: NAPH,MB-DB/K PH,MBDB POWDER PACKET PO SCH ×2 (09:49→21:57)
[2021-08-22] MEDS: PANTOPRAZOLE 40 MG TABLET PO SCH (09:49)
[2021-08-22 09:51] LABS: BASO % 0.3 % (0-2.0); EOS % 0.2 % (0-4.5); HEMATOCRIT 26.3 % (35.4-49); HEMOGLOBIN 8.4 GM/dL (11.7-16.9); LYMPH % 7.3 % (8-40); MCH 24.2 pg (25.7-33.7); MEAN CELL VOLUME 75.7 fl (80-96); MEAN PLT VOLUME 8.4 fl (7.5-11.1); MONO % 12.1 % (3.8-10.2); NEUT % 80.1 % (42.8-82.8); PLATELET COUNT 274 10^3/uL (134-434); RBC 3.47 M/mm3 (4.00-5.60); RDW 18.2 % (11.9-15.9); WHITE BLOOD COUNT 6.2 K/mm3 (4.0-10.0)
[2021-08-22 10:27] LABS: BLOOD UREA NITROGEN 15.2 mg/dL (7-18)
[2021-08-22 10:30] LABS: CREATININE 0.6 mg/dL (0.55-1.3); PHOSPHOROUS 2.4 mg/dL (2.5-4.9)
[2021-08-22 10:31] LABS: BILIRUBIN,TOTAL 0.3 mg/dL (0.2-1); TOT PROT 5.9 g/dl (6.4-8.2)
[2021-08-22 10:32] LABS: MAGNESIUM 1.8 mg/dL (1.8-2.4)
[2021-08-22 10:52] LABS: ANISOCYTOSIS 2+; MACROCYTOSIS 0
[2021-08-22] MEDS: DOCUSATE SODIUM 100 MG CAPSULE (FP) PO SCH (21:57)
[2021-08-22] MEDS: BACITRACIN 15 GM TUBE TOPICAL OINTMENT TP SCH (21:57)
[2021-08-22] MEDS: ATORVASTATIN CA 10 MG TABLET (FP) PO SCH (21:57)
[2021-08-23 08:24] LABS: HEMATOCRIT 27.4 % (35.4-49); HEMOGLOBIN 8.7 GM/dL (11.7-16.9); MCHC 31.9 g/dl (32.0-35.9); MEAN CELL VOLUME 75.2 fl (80-96); PLATELET COUNT 337 10^3/uL (134-434); RBC 3.64 M/mm3 (4.00-5.60); RDW 18.1 % (11.9-15.9); WHITE BLOOD COUNT 6.1 K/mm3 (4.0-10.0)
[2021-08-23 08:52] LABS: CALCIUM 8.9 mg/dL (8.5-10.1)
[2021-08-23 08:53] LABS: ALBUMIN 2.2 g/dl (3.4-5.0); BLOOD UREA NITROGEN 13.8 mg/dL (7-18); MAGNESIUM 1.8 mg/dL (1.8-2.4)
[2021-08-23 08:56] LABS: CREATININE 0.6 mg/dL (0.55-1.3); PHOSPHOROUS 3.1 mg/dL (2.5-4.9)
[2021-08-23 08:58] LABS: BILIRUBIN,TOTAL 0.3 mg/dL (0.2-1); TOT PROT 5.8 g/dl (6.4-8.2)
[2021-08-23 09:45] LABS: ANISOCYTOSIS 1+; MACROCYTOSIS 0
[2021-08-23] MEDS: HEPARIN NA (PORCINE) 5,000 UNITS/ML 1ML VIAL SQ SCH ×2 (10:19→21:35)
[2021-08-23] MEDS: LOSARTAN POTASSIUM 50 MG TABLET PO SCH (10:19)
[2021-08-23] MEDS: PANTOPRAZOLE 40 MG TABLET PO SCH (10:19)
[2021-08-23] MEDS: BACITRACIN 15 GM TUBE TOPICAL OINTMENT TP SCH (21:34)
[2021-08-23] MEDS: guaiFENesin/CODEINE 5 ML UNIT-DOSE CUPS PO PRN (21:35)
[2021-08-23] MEDS: DOCUSATE SODIUM 100 MG CAPSULE (FP) PO SCH (21:35)
[2021-08-23] MEDS: ATORVASTATIN CA 10 MG TABLET (FP) PO SCH (21:35)
[2021-08-24 06:45] VITALS: TEMP 99.2
[2021-08-24] MEDS: PANTOPRAZOLE 40 MG TABLET PO SCH (09:16)
[2021-08-24] MEDS: LOSARTAN POTASSIUM 50 MG TABLET PO SCH (09:16)
[2021-08-24] MEDS: HEPARIN NA (PORCINE) 5,000 UNITS/ML 1ML VIAL SQ SCH (09:16)
[2021-08-24 10:26] VITALS: BP 119/68; PULSE 90
[2021-08-24 11:09] LABS: HEMATOCRIT 26.4 % (35.4-49); HEMOGLOBIN 8.6 GM/dL (11.7-16.9); MCH 24.3 pg (25.7-33.7); MCHC 32.5 g/dl (32.0-35.9); MEAN CELL VOLUME 74.8 fl (80-96); MEAN PLT VOLUME 7.5 fl (7.5-11.1); PLATELET COUNT 381 10^3/uL (134-434); RBC 3.53 M/mm3 (4.00-5.60); RDW 18.8 % (11.9-15.9); WHITE BLOOD COUNT 6.3 K/mm3 (4.0-10.0)
[2021-08-24 11:37] LABS: ALBUMIN 2.2 g/dl (3.4-5.0)
[2021-08-24 11:38] LABS: BILIRUBIN,TOTAL 0.3 mg/dL (0.2-1); PHOSPHOROUS 2.6 mg/dL (2.5-4.9); TOT PROT 5.8 g/dl (6.4-8.2)
[2021-08-24 11:39] LABS: BLOOD UREA NITROGEN 12.5 mg/dL (7-18)
[2021-08-24 11:40] LABS: CREATININE 0.5 mg/dL (0.55-1.3); MAGNESIUM 1.8 mg/dL (1.8-2.4)
[2021-08-24 11:52] LABS: ANISOCYTOSIS 2+; MACROCYTOSIS 0; TARGET CELLS 0
== END 2021-08-24 14:05 | DRG 353 ==
LOC: JER 09:23 → JERBED 13:52 → JICU 20:15 → J8W 08-12 17:51 → J5S 08-21 17:57
PROVIDERS: ADMIT Family Medicine; ATTEND Internal Medicine
PROC: 0WUF0JZ Supplement Abdominal Wall with Synthetic Substitute, Open Approach (ICD-10-PCS; 2021-08-11)
PROC: XW033H6 Introduction of Other New Technology Monoclonal Antibody into Peripheral Vein, Percutaneous Approach, New Technology Group 6 (ICD-10-PCS; principal; 2021-08-19)
DX: K42.0 Umbilical hernia with obstruction, without gangrene (principal); A41.89 Other specified sepsis; J96.01 Acute respiratory failure with hypoxia; U07.1 COVID-19; N17.9 Acute kidney failure, unspecified; E87.2 Acidosis; K56.609 Unspecified intestinal obstruction, unspecified as to partial versus complete obstruction; K56.7 Ileus, unspecified; J98.11 Atelectasis; G93.40 Encephalopathy, unspecified; E87.0 Hyperosmolality and hypernatremia; E11.9 Type 2 diabetes mellitus without complications; E78.5 Hyperlipidemia, unspecified; I10 Essential (primary) hypertension; C61 Malignant neoplasm of prostate; E87.6 Hypokalemia; R41.89 Other symptoms and signs involving cognitive functions and awareness; R00.0 Tachycardia, unspecified; E11.42 Type 2 diabetes mellitus with diabetic polyneuropathy; K21.9 Gastro-esophageal reflux disease without esophagitis; D50.9 Iron deficiency anemia, unspecified; D72.829 Elevated white blood cell count, unspecified
CPT/HCPCS: 36415; 71045-TC-FY; 74018-TC-FY; 74019-TC-FY; 74176-TC; 80048; 80053; 81003; 82570; 82607; 82728; 82803; 82962; 83036; 83540; 83550; 83605; 83615; 83690; 83735; 84100; 84300; 84436; 84439; 84443; 84484; 84540; 85025; 85027; 85379; 85610; 86140; 86780; 86850; 86900; 86901; 87040; 87086; 87804; 88302-TC; 93005; 93010; 94010; 94760; 97116-GP; 97161-GP; 99285-25; C9803-CS; J1644; Q0222; U0003; U0005

== ENCOUNTER 2024-01-17 11:10 | Day surgery (SDC) | payer OTHER ==
[2024-01-15 15:28] VITALS: BMI 31.6
[2024-01-17 12:45] VITALS: TEMP 97
[2024-01-17 13:08] VITALS: BP 128/71; PULSE 68; RESP 18
== END 2024-01-17 13:29 | disposition home or self-care (01) ==
LOC: FASU-ENDO 11:10
PROVIDERS: ATTEND Internal Medicine Gastroenterology
PROC: 0DB68ZX Excision of Stomach, Via Natural or Artificial Opening Endoscopic, Diagnostic (ICD-10-PCS; 2024-01-17)
PROC: 0DB48ZX Excision of Esophagogastric Junction, Via Natural or Artificial Opening Endoscopic, Diagnostic (ICD-10-PCS; 2024-01-17)
PROC: 0DB98ZX Excision of Duodenum, Via Natural or Artificial Opening Endoscopic, Diagnostic (ICD-10-PCS; principal; 2024-01-17 12:22)
DX: K29.50 Unspecified chronic gastritis without bleeding (principal); K20.90 Esophagitis, unspecified without bleeding
CPT/HCPCS: 88305-TC; 88342-TC

== ENCOUNTER 2024-02-21 11:54 | Day surgery (SDC) | payer OTHER ==
[2024-02-19 15:23] VITALS: BMI 31.6
[2024-02-21 14:09] VITALS: RESP 16; TEMP 97.1
[2024-02-21 14:16] VITALS: BP 141/71; PULSE 64
== END 2024-02-21 14:15 | disposition home or self-care (01) ==
LOC: FASU-ENDO 11:54
PROVIDERS: ATTEND Internal Medicine Gastroenterology
PROC: 0DJD8ZZ Inspection of Lower Intestinal Tract, Via Natural or Artificial Opening Endoscopic (ICD-10-PCS; principal; 2024-02-21 12:45)
DX: Z12.11 Encounter for screening for malignant neoplasm of colon (principal); D64.9 Anemia, unspecified; K64.1 Second degree hemorrhoids; K57.30 Diverticulosis of large intestine without perforation or abscess without bleeding